=== PATIENT | female | born 1970 | race Caucasian/White ===

== ENCOUNTER → 2017-08-29 | Outpatient (CLI) | payer OTHER | END | disposition home or self-care (01) | LOC: MAMMO 08:24 | DX: Z12.31 Encounter for screening mammogram for malignant neoplasm of breast (principal) | CPT/HCPCS: 77067 ==

== ENCOUNTER → 2017-09-08 | Outpatient (CLI) | payer OTHER | END | disposition home or self-care (01) | LOC: US 13:42 | DX: N60.01 Solitary cyst of right breast (principal) | CPT/HCPCS: 76641 ==

== ENCOUNTER → 2018-02-10 | Outpatient (CLI) | payer OTHER ==
--- NOTE | 2018-02-10 11:52 | RAD ---
DATE: 02/10/2018 EXAM: DIGITAL DIAGNOSTIC RT, BREAST RIGHT HISTORY: Right breast pain COMPARISON: 08/29/2017 This study was interpreted with the benefit of Computerized Aided Detection (CAD). Breast Density: HETERO The breast parenchyma is heterogenously dense, which could reduce sensitivity of mammography. Breast parenchyma level C. FINDINGS: A nodular opacity seen laterally in the right breast on the previous study has regressed. The previous ultrasound study suggests that this was a cyst. No new or enlarging right breast densities are seen. Minimal scattered benign type microcalcifications are again noted. Right breast ultrasound, 02/10/2018: A targeted ultrasound exam of the right breast was performed in the areas of abnormality identified on the 09/08/2017 exam. At the 10:00 location there is a 10 x 5 x 10 mm cyst which has decreased in size since the previous study. At the 11:30 location there is a 8 x 6 x 8 mm simple appearing cyst which has increased in size since the previous study at which time it measured 5 x 4 x 5 mm. No suspicious characteristics are seen. On today's exam a 7 mm cyst was also noted at the 9:30 location approximately 9 cm in the nipple. This was not identified on the previous study, although that may be due to technical factors. IMPRESSION: 1. Regressing simple cyst at the 10:00 location. 2. No new mammographic abnormality. 3. The targeted right breast ultrasound demonstrates a slight interval enlargement of a cyst at the 11:30 location and a new small simple cyst at the 9:30 location. BI-RADS CATEGORY: 2 BENIGN FINDING(S) RECOMMENDED FOLLOW-UP: 12M 12 MONTH FOLLOW-UP PQRS compliance statement: Patient information was entered into a reminder system with a target due date for the next mammogram. Mammography is a sensitive method for finding small breast cancers, but it does not detect them all and is not a substitute for careful clinical examination. A negative mammogram does not negate a clinically suspicious finding and should not result in delay in biopsying a clinically suspicious abnormality. "Our facility is accredited by the [employer] Mammography [employer]."
== END | disposition home or self-care (01) ==
LOC: MAMMO 10:39
PROVIDERS: ATTEND Physician Assistant Surgical
DX: N63.11 Unspecified lump in the right breast, upper outer quadrant (principal)
CPT/HCPCS: 76641; 77065